=== PATIENT | female | born 1995 | race Caucasian/White ===

== ENCOUNTER 2019-05-21 11:20 | Emergency (ER) | payer BC ==
[~2019-05-21] VITALS: Ht 170.2 cm; Wt 64.5 kg
[2019-05-21 11:56] VITALS: BP 104/69
[2019-05-21] MEDS ORDERED: ketorolac trometh inj. 60 MG/2 ML VIAL IM ONE (13:25)
[2019-05-21] MEDS ORDERED: LIDOcaine 1% w/EPI 1:200,000 injection 10mL vial IM ONE (13:25)
[2019-05-21] MEDS ORDERED: diazepam 5mg tablet PO ONE (13:25)
[2019-05-21] MEDS ORDERED: HYDR-4383 PO (13:27)
[2019-05-21] MEDS ORDERED: CYCL-1 PO (13:27)
[2019-05-21] MEDS ORDERED: IBUP-1984 PO (13:27)
[2019-05-21] MEDS ORDERED: LIDOcaine 1% w/epiNEPHrine 1:200,000 30ml vial IM ONE (13:50)
== END 2019-05-21 14:29 | disposition home or self-care (01) ==
LOC: ER 11:21
DX: S16.1XXA Strain of muscle, fascia and tendon at neck level, initial encounter (principal); Z79.899 Other long term (current) drug therapy; X58.XXXA Exposure to other specified factors, initial encounter; Y93.89 Activity, other specified; Y92.89 Other specified places as the place of occurrence of the external cause; Y99.8 Other external cause status
CPT/HCPCS: 20552; 96372; 99284; J1885